=== PATIENT | male | born 1950 | race Hispanic/Latino ===

== ENCOUNTER 2017-06-04 16:19 | Emergency (ER) | payer OTHER, MEDICARE ==
[~2017-06-04] VITALS: Ht 172.7 cm; Wt 90.7 kg
[2017-06-04 16:25] VITALS: BP 136/81
--- NOTE | 2017-06-04 17:27 | ED GI/GU/ABDOMINAL COMPLAINT ---
History of Present Illness General Chief Complaint: General Adult Stated Complaint: PT STATES"I THINK I HAVE A INFECTION ON MY PENIS" Source: patient, old records Exam Limitations: no limitations Vital Signs & Intake/Output Vital Signs & Intake/Output ED Intake and Output 06/05 0000 06/04 1200 Intake Total Output Total Balance Patient 200 lb Weight Allergies Coded Allergies: NO KNOWN ALLERGIES (01/21/15) Reconcile Medications No Known Home Medications Triage Note: PT REPORTS PINPOINT DOTS TO PENIS FIRST NOTICED 4-5 DAYS AGO, UNIMPROVED BY APPLYING LOTION. STATES HE WAS DIGGING THROUGH GARBAGE AND COLLECTING CANS AND HAD TO URINATE AND THINKS HE MAY HAVE AN INFECTION FROM USING HIS UNCLEAN HANDS. DOTS APPEARED THE NEXT DAY. DENIES PENILE DISCHARGE. DENIES BURNING/STINGING/PAIN WITH URINATION. ENDORSES ITCHINESS. Triage Nurses Notes Reviewed? yes Onset: Abrupt Duration: day(s): (2), constant Timing: recent history Quality/Severity: aching Severity Numbers: 4 Location: penile No Modifying Factors: none Associated Symptoms: denies HPI: 66-year-old male presents complaining of a pruritic rash to the tip of his penis for the past 2 days. He is not sexually active he denies history of sexual transmitted disease. No pain or burning with urination no scrotal pain testicular pain or other rashes to his groin or skin. No history of similar rash in the past. No modifying factors or associated symptoms. He used a facial cream without improvement. No new soaps or detergents. (OSMIN NEWTON) Past History Travel History Traveled to [place] past 21 day No Medical History Any Pertinent Medical History? see below for history Neurological: NONE EENT: NONE Cardiovascular: hypertension Respiratory: NONE Gastrointestinal: BPH Hepatic: NONE Renal: NONE Musculoskeletal: NONE Psychiatric: anxiety, depression, schizophrenia Endocrine: NONE Blood Disorders: NONE Surgical History Surgical History: none Psychosocial History What is your primary language Cypriot Tobacco Use: Current Daily Use Daily Tobacco Use Amount/Type: => 5 Cigarettes daily Family History Hx Contributory? No (OSMIN NEWTON) Review of Systems Review of Systems Constitutional: Reports: see HPI. All Other Systems: Reviewed and Negative Comments Review of systems: See HPI, All other systems negative. Constitutional, no chills no fever, no malaise HEENT: No visual changes no sore throat no congestion Cardiovascular: No chest pain , no palpitation , Skin: no rashes, no change in skin Respiratory: No dyspnea no cough no sputum GI: No nausea no vomiting, no diarrhea, : No dysuria No hematuria, no frequency, no discharge Muscle skeletal: No joint pain, no back pain, no neck pain, Neurologic: no headache Psych: No stress Heme/endocrine: No bruising Immunology: No lymphadenopathy (OSMIN NEWTON) Physical Exam Physical Exam General Appearance: well developed/nourished, no apparent distress, alert, awake Gastrointestinal: soft Comments: Well-developed well-nourished patient in no apparent distress. HEENT: Atraumatic, extraocular motion intact Neck: Supple, FROM Back: FROM Cardiovascular: Regular rate and rhythms Respiratory: No respiratory distress. Patient speaking in full complete sentences. Breath sounds clear to auscultation bilaterally: NO W/R/R Male : Mild erythema excoriation over the tip of the penis, the rest of the external genitalia is unremarkable, testes nontender. No scrotal swelling or mases, No discharge. Extremities: full range of motion Neuro: awake, alert, and oriented to person, place and time. There were no obvious focal neurologic abnormalities. Skin: Warm & dry;No appreciable rash on exposed skin Psych: Mood affect normal, normal memory normal judgment. Core Measures ACS in differential dx? No Severe Sepsis Present: No Septic Shock Present: No (OSMIN NEWTON) Progress Differential Diagnosis: STD, urinary retention, urethritis, UTI/pyelo, BALANITIS Plan of Care: Orders Procedure Date/time Status CULTURE,URINE 06/04 1629 Active URINALYSIS 06/04 1629 Complete Laboratory Tests 06/04/17 1638: Urinalysis LIGHT H, Urine Color YEL, Urine Clarity CLEAR, Urine pH 6.0, Ur Specific Novice 1.025, Urine Protein TRACE H, Urine Ketones NEG, Urine Nitrite NEG, Urine Bilirubin NEG, Urine Urobilinogen 0.2, Ur Leukocyte Esterase SMALL H , Ur Microscopic SEDIMENT EXAMINED, Urine RBC 1-3, Urine WBC 1-3 H, Ur Epithelial Cells RARE, Urine Bacteria RARE H, Urine Mucus FEW, Urine Hemoglobin MOD H, Urine Glucose NEG Microbiology 06/04 1638 URINE ROUT: Urine Culture - RECD Discussed with the patient plan of care he feels will plan advised using over- the-counter CLOTRIMAZOLE CREAM return precautions discussed at length he feels comfortable with this plan (OSMIN NEWTON) Initial ED EKG: none (OSMIN NEWTON) Departure Departure Time of Disposition: 1731 Disposition: HOME OR SELF CARE Condition: Stable Clinical Impression Primary Impression: Balanitis Referrals: UNKNOWN (PCP/Family) Additional Instructions: USE OVER THE COUNTER CLOTRIMAZOLE CREAM- APPLY TWICE A DAY MORNING AND EVENING. RETURN TO THE ER WITH ANY CONCERNS Departure Forms: Customer Survey General Discharge Information Prescriptions: Current Visit Scripts No Known Home Medications (OSMIN NEWTON) PA/ACTUARIAL CONSULTANT Co-Sign Statement Statement: ED Attending supervision documentation- [] I saw and evaluated the patient. I have also reviewed all the pertinent lab results and diagnostic results. I agree with the findings and the plan of care as documented in the PA's/ACTUARIAL CONSULTANT's documentation. [X] I have reviewed the ED Record and agree with the PA's/ACTUARIAL CONSULTANT's documentation. [] Additions or exceptions (if any) to the PAs/ACTUARIAL CONSULTANT's note and plan are summarized below: [] (GIORGI LEGER,ОЛЕГ)
== END 2017-06-04 17:39 ==
LOC: ERH 16:19
DX: N48.1 Balanitis (principal)
CPT/HCPCS: 81001; 87086